=== PATIENT | male | born 1985 | race Asian ===

== ENCOUNTER 2017-11-21 14:47 | Emergency (ER) | payer OTHER ==
[2017-11-21 14:56] VITALS: BP 133/76; PULSE 93; TEMP 98.6; BMI 26.6
--- NOTE | 2017-11-21 15:39 | PDOC ---
History of Present Illness - General Chief Complaint: Ear Problem Stated Complaint: LT HEARING LOSS Time Seen by Provider: 11/21/17 15:17 History Source: Patient Exam Limitations: No Limitations - History of Present Illness Initial Comments: 11/21/17 15:34 This is 32-year-old male without significant past medical history presents to the emergency department with decreased hearing in his left ear starting on Wednesday afternoon. Patient states came on from work and noticed sudden onset hearing loss in his left ear. He denies any trauma he denies trying to clean his ears denies any discharge or drainage. Patient states the hearing has remained decreased over that time but woke up yesterday morning with dizziness that smoke approximately one hour to resolve. Patient did not seek out care because the dizziness did resolve spontaneously. He denies any fevers, cough, chills, ear pain, headaches, neck pain, chest pain, shortness of breath. Patient denies loud noise exposure. PMD: None PMH: Denies PSH: Denies NKDA Occupation: works at [employer] Past History - Past Medical History Allergies/Adverse Reactions: Allergies Allergy/AdvReac Type Severity Reaction Status Date / Time No Known Allergies Allergy Verified 11/21/17 14:56 Home Medications: Ambulatory Orders Meclizine HCl [Antivert -] 25 mg PO TID PRN #21 tablet 11/21/17 COPD: No - Suicide/Smoking/Psychosocial Hx Smoking History: Current some day smoker Number of Cigarettes Smoked Daily: 2 Information on smoking cessation initiated: No Hx Alcohol Use: Yes (SOCIAL) Drug/Substance Use Hx: No *Physical Exam - Vital Signs Last Vital Signs Temp Pulse Resp BP Pulse Ox 98.6 F 93 H 20 133/76 95 11/21/17 14:50 11/21/17 14:50 11/21/17 14:50 11/21/17 14:50 11/21/17 14:50 Medical Decision Making - Medical Decision Making 11/21/17 15:36 A/P: This is 32-year-old male without significant past medical history presents to the emergency department with decreased hearing in his left ear starting on Wednesday afternoon. Patient states came on from work and noticed sudden onset hearing loss in his left ear. He denies any trauma he denies trying to clean his ears denies any discharge or drainage. Patient states the hearing has remained decreased over that time but woke up yesterday morning with dizziness that smoke approximately one hour to resolve. Patient did not seek out care because the dizziness did resolve spontaneously. He denies any fevers, cough, chills, ear pain, headaches, neck pain, chest pain, shortness of breath. Examination the ears reveals mild erythema noted around the TM. TMs pearly smith with mild retractions bilaterally. Appropriate light reflex noted. Oropharynx is clear without exudates. Lungs clear to auscultation bilaterally. RRR. S1 and S2 present. No murmur, rub or gallop noted. Abdomen soft nontender nondistended. Examination of cranial nerves reveals left-sided deviation to the tip of the tongue. Patient will be transferred to main emergency department for further evaluation of neurologic findings. Signout given to KAI Brower. *DC/Admit/Observation/Transfer Diagnosis at time of Disposition: Hearing loss in left ear Qualifiers: Hearing loss type: unspecified Qualified Code(s): H91.92 - Unspecified hearing loss, left ear - Discharge Dispostion Disposition: HOME Condition at time of disposition: Good - Prescriptions Prescriptions: Meclizine HCl [Antivert -] 25 mg PO TID PRN #21 tablet PRN Reason: dizzyness - Referrals Referrals: Seven Stahl MD [Staff Physician] - Emery Mccall MD [Staff Physician] - - Patient Instructions Additional Instructions: your head cat scan done today is normal, however this does not exclude other etiologies for your hearing loss so you must follow up to have continued care take the meclizine as directed for dizzyness drink pleanty of water avoid any loud noises, avoid using anything in your ear please follow with the ENT doctors next week call to make appointment on wednesday say you were in the Emergency Room please call for primary care follow up appointment - Post Discharge Activity
--- NOTE | 2017-11-21 16:11 | PDOC ---
*Physical Exam - Vital Signs Last Vital Signs Temp Pulse Resp BP Pulse Ox 98.6 F 93 H 20 133/76 95 11/21/17 14:50 11/21/17 14:50 11/21/17 14:50 11/21/17 14:50 11/21/17 14:50 - Physical Exam Comments: 11/21/17 16:06 left ear decreased hearing General Appearance: Yes: Nourished, Appropriately Dressed HEENT: positive: EOMI, BERTHA, Normal ENT Inspection, TMs Normal, Pharynx Normal Neck: positive: Supple. negative: Lymphadenopathy (R), Lymphadenopathy (L) Respiratory/Chest: positive: Lungs Clear, Normal Breath Sounds Cardiovascular: positive: Regular Rhythm, Regular Rate Lymphatic: negative: Adenopathy Musculoskeletal: positive: Normal Inspection Extremity: positive: Normal Capillary Refill, Normal Inspection, Normal Range of Motion Integumentary: positive: Normal Color, Dry, Warm Neurologic: positive: Fully Oriented, Alert, Normal Mood/Affect, Normal Response , Motor Strength 5/5, Finger to Nose (intact, steady gait neg rhomberg ), Other (POS DECREASED HEARING LEFT SIDE) ED Treatment Course - RADIOLOGY Radiology Studies Ordered: Category Date Time Status HEAD CT WITHOUT CONTRAST [CT] Stat CT Scan 11/21/17 16:00 Ordered Medical Decision Making - Medical Decision Making 11/21/17 16:07 cc: wednesday afternoon had "ringing in left ear" and then decreased hearing, sat AM had episode of dizzyness upon awakening that resolved on own denies nausea or vomiting denies any trauma, no exposure to loud noises, no travel on airplane. pt admits to wearing ear buds 3-4 times a week no surgeriey no pmhx denies any drug use, illicit or other, neg antibiotic use recently pt has no pain is comfortable at this time will get head ct r/o pathology will refer to ENT and give a PMD meclizine prn dizzyness *DC/Admit/Observation/Transfer Diagnosis at time of Disposition: Hearing loss in left ear Qualifiers: Hearing loss type: unspecified Qualified Code(s): H91.92 - Unspecified hearing loss, left ear - Discharge Dispostion Disposition: HOME Condition at time of disposition: Good - Prescriptions Prescriptions: Meclizine HCl [Antivert -] 25 mg PO TID PRN #21 tablet PRN Reason: dizzyness - Referrals Referrals: Favio,Seven, MD [Staff Physician] - Emery Mccall MD [Staff Physician] - - Patient Instructions Additional Instructions: your head cat scan done today is normal, however this does not exclude other etiologies for your hearing loss so you must follow up to have continued care take the meclizine as directed for dizzyness drink pleanty of water avoid any loud noises, avoid using anything in your ear please follow with the ENT doctors next week call to make appointment on wednesday say you were in the Emergency Room please call for primary care follow up appointment - Post Discharge Activity
== END 2017-11-21 17:43 | disposition home or self-care (01) ==
LOC: JER 14:47
DX: H91.92 Unspecified hearing loss, left ear (principal)
CPT/HCPCS: 70450-TC; 99284-25

== ENCOUNTER 2020-06-29 22:21 | Inpatient (IN) | payer OTHER ==
[2020-06-29 22:38] VITALS: BMI 25.0
--- NOTE | 2020-06-29 22:55 | PDOC ---
History of Present Illness - General Chief Complaint: Pain Stated Complaint: ABD PAIN - History of Present Illness Initial Comments: 34 yo male with PMH of gastritis presents with abdominal pain, nausea, vomiting, diarrhea. Pt says the symptoms have been ongoing for the past 1 month. The nausea is non-bloody and non-bilious and occurs 1-2x/day typically after meals. The diarrhea is non-bloody and occurs 2-3 times per day. He also endorses excessive urination without dysuria. He follows with Dr. Lozoya who had performed a RUQ US which revealed a hepatic cyst and will do a EGD next week to evaluate for gastritis. Pt denies fevers, chills, cp, sob. Past History - Medical History Allergies/Adverse Reactions: Allergies Allergy/AdvReac Type Severity Reaction Status Date / Time No Known Allergies Allergy Verified 11/21/17 14:56 Home Medications: Ambulatory Orders Meclizine HCl [Antivert -] 25 mg PO TID PRN #21 tablet 11/21/17 COPD: No - Psycho-Social/Smoking History Smoking History: Never smoked Number of Cigarettes Smoked Daily: 2 - Substance Abuse Hx (Audit-C & DAST Scrn) How often the patient has a drink containing alcohol: Never Score: In Men: 4 or > Positive; In Women: 3 or > Positive: 0 Screen Result (Pos requires Nsg. Audit-10AR): Negative Review of Systems - Review of Systems Constitutional: No: Chills, Fever HEENTM: No: Recent change in vision, Double Vision Respiratory: No: Cough, Shortness of Breath Cardiac (ROS): No: Chest Pain, Chest Tightness ABD/GI: Yes: Abdominal Distended, Diarrhea, Nausea, Vomiting, Abdominal cramping (right sided) : Yes: Frequency. No: Burning, Dysuria Musculoskeletal: No: Back Pain, Joint Pain, Muscle Pain Integumentary: No: Erythema, Lesions, Rash Neurological: No: Headache, Seizure, Ataxia, Dizziness Psychiatric: No: Anxiety, Depression, Mood Swings Endocrine: No: Intolerance to Cold, Intolerance to Heat, Increased Urine *Physical Exam - Vital Signs Last Vital Signs Temp Pulse Resp BP Pulse Ox 98.4 F 92 H 20 138/80 98 06/29/20 22:32 06/29/20 22:32 06/29/20 22:32 06/29/20 22:32 06/29/20 22:32 - Physical Exam General Appearance: Yes: Appropriately Dressed. No: Apparent Distress HEENT: positive: EOMI, Normal Voice Neck: negative: Tender, Rigid Respiratory/Chest: positive: Lungs Clear, Normal Breath Sounds. negative: Respiratory Distress Cardiovascular: positive: Regular Rhythm, Regular Rate, S1, S2 Gastrointestinal/Abdominal: positive: Normal Bowel Sounds, Tender (right sided), Flat, Guarding. negative: Pulsatile Mass Musculoskeletal: positive: Normal Inspection. negative: CVA Tenderness Extremity: positive: Normal Capillary Refill, Normal Inspection, Normal Range of Motion Integumentary: positive: Normal Color, Dry, Warm Neurologic: positive: Fully Oriented, Alert, Normal Mood/Affect Medical Decision Making - Medical Decision Making 34 yo male with PMH of gastritis presenting with 1 month of abdominal pain, nausea, vomiting, diarrhea for 1 month. Pt last took zofran and mylanta at 2100 Pt given 1L fluids, Tylenol, Famotidine, Reglan, Maalox Pt follows with Dr. Lozoya for GI with a scheduled RUQ US Pt signed out to night team. 06/30/20 00:13 Discharge - Discharge Information Problems reviewed: Yes Clinical Impression/Diagnosis: Nausea vomiting and diarrhea, Abdominal pain - Follow up/Referral - Patient Discharge Instructions - Post Discharge Activity
[2020-06-29] MEDS ORDERED: ACETAMINOPHEN 325 MG TABLET (FP) PO ONE (23:32)
[2020-06-29] MEDS ORDERED: METOCLOPRAMIDE HCL INJECTION 10 MG/2 ML VIAL IVPUSH ONE (23:33)
[2020-06-29] MEDS ORDERED: FAMOTIDINE 20 MG/50 ML IVPB 20 MG/50 ML MG IVPB ONE (23:34)
[2020-06-29] MEDS ORDERED: SODIUM CHLORIDE 1,000 ML IV STA (23:51)
--- NOTE | 2020-06-29 23:52 | PDOC ---
Documentation entered by Latoya San SCRIBE, acting as scribe for Arnav Doyle MD. Arnav Doyle MD: This documentation has been prepared by the ashleyibeMena Sydney, SCRIBE, under my direction and personally reviewed by me in its entirety. I confirm that the documentation accurately reflects all work, treatment, procedures, and medical decision making performed by me. Attending Attestation - Resident Resident Name: Nikki York - ED Attending Attestation I have performed the following: I have examined & evaluated the patient, The case was reviewed & discussed with the resident, I agree w/resident's findings & plan, Exceptions are as noted - HPI HPI: 06/29/20 23:30 Patient is a 34 year old male with a significant past medical history of gastritis who presents to the ED with one month of abdominal pain, nausea, and vomiting. As per patient, he endorses sharp, non-radiating abdominal pain localized in the R flank, between 1-2 episodes of NBNB vomiting and 2-3 episodes of loose stool per day. Patient also notes polyuria but denies dysuria. Patient states that he is seen his primary care doctor as well as GI doctor was referred for a gallbladder ultrasound. The symptoms do seem to be brought on by heavy greasy spicy foods. He was tested for COVID in March and was negative Denies fever, chills, hematemesis, melena, BPR headache, shortness of breath, chest pain, constipation, or urinary changes. No recent travel or known sick contacts Allergies: NKDA GI Dr. Lozoya - Physicial Exam PE: 06/29/20 23:48 GENERAL: The patient is awake, alert, and fully oriented, Nontoxic - in no acute distress. HEAD: Normocephalic, atraumatic. EYES: extraocular movements intact, sclera anicteric, conjunctiva clear. ENT: Normal voice, Moist mucous membranes. NECK: Normal range of motion, supple LUNGS: Breath sounds equal, clear to auscultation bilaterally. No wheezes, no rhonchi, no rales. HEART: Regular rate and rhythm, normal S1 and S2 without murmur, rub or gallop. ABDOMEN: Soft, mild tednerss at R obliique, No guarding, no rebound. No CVA tenderness, negative Echevarria's, no tenderness at McBurney's point EXTREMITIES: Normal range of motion, no edema. NEUROLOGICAL: No facial assymetry, Normal speech, moving all 4 extremities pontnously and symmetrically PSYCH: Normal mood, normal affect. SKIN: Warm, Dry, normal turgor, - Medical Decision Making 06/29/20 23:51 Differential for the patient's pain includes possible MSK, kidney stone, consider possible gallbladder etiology however he has no right upper quadrant tenderness, nor any right lower quadrant tenderness. Obtain blood work, will give Pepcid, Maalox, will obtain UA will reassess 07/09/20 23:59 Case signed out to evening team to reassess and disposition the patient Discharge - Discharge Information Problems reviewed: Yes Clinical Impression/Diagnosis: Nausea vomiting and diarrhea, Right kidney stone, Hydronephrosis of right kidney Abdominal pain Qualifiers: Abdominal location: generalized Qualified Code(s): R10.84 - Generalized abdominal pain Condition: Stable - Follow up/Referral - Patient Discharge Instructions - Post Discharge Activity
[2020-06-30] MEDS ORDERED: METOCLOPRAMIDE HCL INJECTION 10 MG/2 ML VIAL ONE (00:08)
[2020-06-30] MEDS ORDERED: FAMOTIDINE 20 MG/50 ML IVPB 20 MG/50 ML MG IVPB ONE (00:08)
[2020-06-30] MEDS ORDERED: ACETAMINOPHEN 325 MG TABLET (FP) ONE (00:08)
--- NOTE | 2020-06-30 00:31 | PDOC ---
*Physical Exam - Vital Signs Last Vital Signs Temp Pulse Resp BP Pulse Ox 98.4 F 92 H 20 138/80 98 06/29/20 22:32 06/29/20 22:32 06/29/20 22:32 06/29/20 22:32 06/29/20 22:32 ED Treatment Course - LABORATORY CBC & Chemistry Diagram: 06/30/20 00:25 06/30/20 00:25 - Medications Given in the ED: ED Medications Discontinued Medications Generic Name Dose Route Start Last Admin Trade Name [place] PRN Reason Stop Dose Admin Acetaminophen 650 mg 06/29/20 23:32 06/30/20 00:24 Tylenol - PO 06/29/20 23:33 650 mg ONCE ONE Administration Famotidine/Sodium Chloride 20 mg in 50 mls @ 100 mls/hr 06/29/20 23:34 06/30/20 00:24 Pepcid 20 Mg Premixed Ivpb - IVPB 06/30/20 00:03 100 mls/hr ONCE ONE Administration Metoclopramide HCl 10 mg 06/29/20 23:33 06/30/20 00:24 Reglan Injection - IVPUSH 06/29/20 23:34 10 mg ONCE ONE Administration Medical Decision Making - Medical Decision Making 06/30/20 00:30 Sign out received []labs, urine 06/30/20 02:08 Pain improved. Pain intermittent x1mo, R flank. No hx kidney stones. EGD next week. Never CT scan done. Denies hematuria, endorses some pain with urination. Labs/urine reviewed - MICHELLE and hematuria, c/w kidney stone -Spiral CTAP -2nd L NS 06/30/20 04:11 [id number] stone in R posterior bladder wall at R ureterovesicular junction with m oderate right hydronephrosis -Tamsulosin -IVF -Admit due to 1mo pain, moderate hydro, size stone, risk of not passing on own 06/30/20 05:53 Signed out to admitting team Discharge - Discharge Information Problems reviewed: Yes Clinical Impression/Diagnosis: Nausea vomiting and diarrhea, Abdominal pain, Right kidney stone, Hydronephrosis of right kidney Condition: Stable - Admission Yes - Follow up/Referral - Patient Discharge Instructions - Post Discharge Activity
[2020-06-30 01:00] LABS: HEMATOCRIT 43.1 % (35.4-49); HEMOGLOBIN 14.6 GM/dL (11.7-16.9); MCH 31.1 pg (25.7-33.7); MEAN CELL VOLUME 91.4 fl (80-96); MEAN PLT VOLUME 9.7 fl (7.5-11.1); PLATELET COUNT 211 K/MM3 (134-434); RBC 4.72 M/mm3 (4.00-5.60); RDW 12.8 % (11.9-15.9); WHITE BLOOD COUNT 10.1 K/mm3 (4.0-10.0)
[2020-06-30 01:13] LABS: EPI CELLS 3 /uL (0-25.1); HYALINE CASTS 1 /uL (0-3.1); URINE APPEARANCE CLEAR; URINE BACTERIA 168 /uL (0-1359); URINE BILIRUBIN NEGATIVE (NEGATIVE); URINE COLOR YELLOW; URINE GLUCOSE (UA) NEGATIVE (NEGATIVE); URINE KETONE 2+ (NEGATIVE); URINE LEUK ESTERASE NEGATIVE (NEGATIVE); URINE NITRITE NEGATIVE (NEGATIVE); URINE PROTEIN NEGATIVE (NEGATIVE); URINE RBC 168 /uL (0-23.9); URINE UROBILINOGEN 0.2 mg/dL (0.2-1.0); URINE WBC 18 /uL (0-25.8)
[2020-06-30 01:22] LABS: BILIRUBIN,TOTAL 0.8 mg/dL (0.2-1); BLOOD UREA NITROGEN 17.9 mg/dL (7-18); CALCIUM 9.3 mg/dL (8.5-10.1); CREATININE 1.5 mg/dL (0.55-1.3); POTASSIUM 4.5 mmol/L (3.5-5.1); TOT PROT 7.3 g/dl (6.4-8.2)
[2020-06-30] MEDS ORDERED: KETOROLAC TROMETHAMINE 30 MG/1 ML VIAL IVPUSH ONE (01:59)
[2020-06-30] MEDS ORDERED: KETOROLAC TROMETHAMINE 30 MG/1 ML VIAL ONE (02:13)
[2020-06-30] MEDS ORDERED: SODIUM CHLORIDE 0.9% 500 ML INFUS.BAG IV ONE (02:15)
[2020-06-30] MEDS ORDERED: TAMSULOSIN HCL 0.4 MG CAP PO ONE (04:11)
[2020-06-30] MEDS ORDERED: SODIUM CHLORIDE 1,000 ML IV SCH (04:15)
[2020-06-30] MEDS ORDERED: TAMSULOSIN HCL 0.4 MG CAP ONE (05:08)
[2020-06-30] MEDS ORDERED: CEFTRIAXONE 1 GM in DEXTROSE 5%-WATER - 50 ML IVPB ONE (05:43)
--- NOTE | 2020-06-30 05:43 | PDOC ---
*Physical Exam - Vital Signs Last Vital Signs Temp Pulse Resp BP Pulse Ox 97.8 F 71 18 111/75 99 06/30/20 02:55 06/30/20 02:55 06/30/20 02:55 06/30/20 02:55 06/30/20 02:55 ED Treatment Course - LABORATORY CBC & Chemistry Diagram: 06/30/20 00:25 06/30/20 00:25 - ADDITIONAL ORDERS Additional order review: Laboratory Results 06/30/20 06/30/20 06/30/20 00:25 00:25 00:25 Sodium 138 Potassium 4.5 Chloride 104 Carbon Dioxide 29 Anion Gap 5 L BUN 17.9 Creatinine 1.5 H Est GFR (CKD-EPI)AfAm 68.43 Est GFR (CKD-EPI)NonAf 59.04 Random Glucose 111 H Calcium 9.3 Total Bilirubin 0.8 AST 25 ALT 24 Alkaline Phosphatase 59 Total Protein 7.3 Albumin 4.0 Lipase 147 Urine Color Yellow Urine Appearance Clear Urine pH 6.0 Ur Specific [place] 1.017 Urine Protein Negative Urine Glucose (UA) Negative Urine Ketones 2+ H Urine Blood 3+ H Urine Nitrite Negative Urine Bilirubin Negative Urine Urobilinogen 0.2 Ur Leukocyte Esterase Negative Urine WBC (Auto) 18 Urine RBC (Auto) 168 Urine Casts (Auto) 1 U Epithel Cells (Auto) 3 Urine Bacteria (Auto) 168 06/30/20 00:25 RBC 4.72 MCV 91.4 MCHC 34.0 RDW 12.8 MPV 9.7 - Medications Given in the ED: ED Medications Discontinued Medications Generic Name Dose Route Start Last Admin Trade Name Freq PRN Reason Stop Dose Admin Acetaminophen 650 mg 06/29/20 23:32 06/30/20 00:24 Tylenol - PO 06/29/20 23:33 650 mg ONCE ONE Administration Famotidine/Sodium Chloride 20 mg in 50 mls @ 100 mls/hr 06/29/20 23:34 06/30/20 00:24 Pepcid 20 Mg Premixed Ivpb - IVPB 06/30/20 00:03 100 mls/hr ONCE ONE Administration Sodium Chloride 1,000 mls @ 1,000 mls/hr 06/29/20 23:51 06/30/20 00:24 Normal Saline - IV 06/30/20 00:50 1,000 mls/hr ASDIR STA Administration Ketorolac Tromethamine 30 mg 06/30/20 01:59 06/30/20 02:29 Toradol Injection - IVPUSH 06/30/20 02:00 30 mg ONCE ONE Administration Metoclopramide HCl 10 mg 06/29/20 23:33 06/30/20 00:24 Reglan Injection - IVPUSH 06/29/20 23:34 10 mg ONCE ONE Administration Sodium Chloride 1,000 ml 06/30/20 02:15 06/30/20 02:43 Normal Saline - IV 06/30/20 02:16 1,000 ml ONCE ONE Administration Tamsulosin HCl 0.4 mg 06/30/20 04:11 06/30/20 05:13 Flomax - PO 06/30/20 04:12 0.4 mg ONCE ONE Administration Medical Decision Making - Medical Decision Making 06/30/20 05:42 Pt signed out to us by the night team. Patient Name: LISA DODSON THIS IS A PRELIMINARY REPORT DATE OF SERVICE: 2020-06-30 01:58:53 IMAGES: [id number] EXAM: CT abdomen without contrast and CT pelvis without contrast HISTORY: 34-year-old male right flank pain COMPARISON: None. FINDINGS: No basilar infiltrate. Lack of intravenous contrast limits this exam. Noncontrast evaluation liver gallbladder pancreas spleen and adrenal glands left kidney appear unremarkable. Moderate right hydronephrosis with an 8 x 4 x 4 mm stone in the right posterior bladder wall at the right ureterovesicular junction. Small hiatal hernia. Lack of oral contrast limits this exam. Nonoral contrast evaluation of the stomach and small bowel appear unremarkable. Appendix is not identified. Diverticulosis. No free air. No free fluid. No abscess. Mild nonspecific bladder wall thickening may be due to infectious cystitis. Calcified granulomas in the prostate. Mild degenerative disc disease. IMPRESSION: Moderate right hydronephrosis with an 8 x 4 x 4 mm stone in the right posterior bladder wall at the right ureterovesicular junction. Small hiatal hernia. Diverticulosis. Mild nonspecific bladder wall thickening may be due to infectious cystitis. Pt will be admitted to the hospitalists for an obstructed stone Discharge - Discharge Information Problems reviewed: Yes Clinical Impression/Diagnosis: Nausea vomiting and diarrhea, Abdominal pain, Right kidney stone, Hydronephrosis of right kidney Condition: Stable - Follow up/Referral - Patient Discharge Instructions - Post Discharge Activity
[2020-06-30] MEDS ORDERED: CEFTRIAXONE 1 GM/50 ML BAG ONE (06:06)
[2020-06-30] MEDS ORDERED: ACETAMINOPHEN 325 MG TABLET (FP) PO PRN (08:41)
[2020-06-30] MEDS ORDERED: MORPHINE SULFATE 2 MG/ML VIAL IVPUSH PRN (08:44)
--- NOTE | 2020-06-30 08:51 | EKG ---
Test Reason : Blood Pressure : / mmHG Vent. Rate : 065 BPM Atrial Rate : 065 BPM P-R Int : 142 ms QRS Dur : 078 ms QT Int : 390 ms P-R-T Axes : 041 021 020 degrees QTc Int : 405 ms NORMAL SINUS RHYTHM INCREASED R/S RATIO IN V1, CONSIDER EARLY TRANSITION OR POSTERIOR INFARCT ABNORMAL ECG NO PREVIOUS ECGS AVAILABLE Confirmed by Carmella Kim ([id number]) on 06/30/2020 8:51:07 AM Referred By: Confirmed By:Carmella Kim
[2020-06-30] MEDS: SODIUM CHLORIDE 1,000 ML IV SCH (09:27)
--- NOTE | 2020-06-30 10:25 | HP ---
CHIEF COMPLAINT: Flank pain PCP: None HISTORY OF PRESENT ILLNESS: 34yo M with h/o gastritis who presents originally to the ER with abdominal and flank pain. Patient has had roughly 1 mo of abdominal/flank pain with nausea and Nb/NB vomiting. He sough further evaluation due to sudden onset of sharp non-radiating pain in his R flank. Patient has had about 2 episodes of loose stool without any blood or mucus. Pt endorses polyuria, but denies any hematuria or dysuria. Patient denies any vitamin use. Pt denies any fever/chills, n/v/d/c, SOB, CP, palpitations, sick contacts, weakness, or numbness. Denies any sick contacts or travel. Denies any previous stones in the past. PAST MEDICAL HISTORY: As above PAST SURGICAL HISTORY: None Social History: Smoking: Denies Alcohol: Denies Drugs: Denies FamHx: No history of nephrolithiasis Allergies No Known Allergies Allergy (Verified 11/21/17 14:56) HOME MEDICATIONS: Home Medications Medication Instructions Recorded Lactobacillus Acidophilus 1 each PO DAILY 06/30/20 [Probiotic] Omeprazole Magnesium [Prilosec Otc] 20 mg PO DAILY 06/30/20 REVIEW OF SYSTEMS As per HPI PHYSICAL EXAMINATION Vital Signs - 24 hr 06/29/20 06/30/20 06/30/20 22:32 02:55 06:24 Temperature 98.4 F 97.8 F 97.8 F Pulse Rate 92 H Pulse Rate [ 71 60 Left Radial] Respiratory 20 18 18 Rate Blood Pressure 138/80 Blood Pressure 111/75 113/83 [Right Arm] O2 Sat by Pulse 98 99 97 Oximetry (%) 06/30/20 08:04 Temperature 97.5 F L Pulse Rate 64 Pulse Rate [ Left Radial] Respiratory 18 Rate Blood Pressure 118/54 L Blood Pressure [Right Arm] O2 Sat by Pulse Oximetry (%) GENERAL: Awake, alert, and fully oriented, in no acute distress. HEENT: NC/AT, HAM, EOMI without nystagmus, MMM NECK: No JVD, no lymphadenopathy LUNGS: CTA bilaterally. No wheezes, and no crackles. No accessory muscle use. HEART: RRR, normal S1 and S2 without murmur ABDOMEN: Soft, NT/ND, normoactive bowel sounds, no guarding, no rebound, no masses. No hepatomegaly MUSCULOSKELETAL: Mild CVA tenderness L EXTREMITIES: 2+ DP pulses, warm, well-perfused. No calf tenderness. No peripheral edema. PSYCHIATRIC: Cooperative. Good eye contact. Appropriate mood and affect. SKIN: Warm, dry, no rashes or lesions noted Laboratory Results - last 24 hr 06/30/20 06/30/20 06/30/20 00:25 00:25 00:25 WBC 10.1 H RBC 4.72 Hgb 14.6 Hct 43.1 MCV 91.4 MCH 31.1 MCHC 34.0 RDW 12.8 Plt Count 211 MPV 9.7 Sodium 138 Potassium 4.5 Chloride 104 Carbon Dioxide 29 Anion Gap 5 L BUN 17.9 Creatinine 1.5 H Est GFR (CKD-EPI)AfAm 68.43 Est GFR (CKD-EPI)NonAf 59.04 Random Glucose 111 H Calcium 9.3 Total Bilirubin 0.8 AST 25 ALT 24 Alkaline Phosphatase 59 Total Protein 7.3 Albumin 4.0 Lipase Urine Color Yellow Urine Appearance Clear Urine pH 6.0 Ur Specific [place] 1.017 Urine Protein Negative Urine Glucose (UA) Negative Urine Ketones 2+ H Urine Blood 3+ H Urine Nitrite Negative Urine Bilirubin Negative Urine Urobilinogen 0.2 Ur Leukocyte Esterase Negative Urine WBC (Auto) 18 Urine RBC (Auto) 168 Urine Casts (Auto) 1 U Epithel Cells (Auto) 3 Urine Bacteria (Auto) 168 06/30/20 00:25 WBC RBC Hgb Hct MCV MCH MCHC RDW Plt Count MPV Sodium Potassium Chloride Carbon Dioxide Anion Gap BUN Creatinine Est GFR (CKD-EPI)AfAm Est GFR (CKD-EPI)NonAf Random Glucose Calcium Total Bilirubin AST ALT Alkaline Phosphatase Total Protein Albumin Lipase 147 Urine Color Urine Appearance Urine pH Ur Specific [place] Urine Protein Urine Glucose (UA) Urine Ketones Urine Blood Urine Nitrite Urine Bilirubin Urine Urobilinogen Ur Leukocyte Esterase Urine WBC (Auto) Urine RBC (Auto) Urine Casts (Auto) U Epithel Cells (Auto) Urine Bacteria (Auto) ASSESSMENT/PLAN: Obstructing Nephrolithiasis Complicated Cystitis Acute kidney Injury History of Gastritis History of Hepatic Cyst --8x4x4 cm stone noted in junction --Hydrate with IVF to promote renal output --Flomax 0.4mg daily --Pain control: Tylenol and morphine for extreme pain (would avoid NSAIDs in patient with history of gastritis) --Rocephin daily ordered for empiric coverage --Strain urine for stone passage --If patient's renal function worsens or stone does not pass would consult urology for extraction --Urine culture pending --F/u hepatic cyst and gastritis treatment on outpatient basis FEN: Fluids: NS@100cc/hr Electrolyte abnormalities: None currently Nutrition: Regular diet PPX: DVT - Early ambulation for now Dispo: Adm M/S Emery Mary, DO - IM Visit type - Emergency Visit Emergency Visit: Yes ED Registration Date: 06/30/20 Care time: The patient presented to the Emergency Department on the above date and was hospitalized for further evaluation of their emergent condition. - New Patient This patient is new to me today: Yes Date on this admission: 06/30/20 - Critical Care Critical Care patient: No
[2020-07-01 08:01] LABS: HEMATOCRIT 42.1 % (35.4-49); HEMOGLOBIN 14.3 GM/dL (11.7-16.9); MCH 30.8 pg (25.7-33.7); MEAN CELL VOLUME 90.6 fl (80-96); MEAN PLT VOLUME 9.7 fl (7.5-11.1); PLATELET COUNT 203 K/MM3 (134-434); RBC 4.65 M/mm3 (4.00-5.60); RDW 12.6 % (11.9-15.9); WHITE BLOOD COUNT 5.2 K/mm3 (4.0-10.0)
[2020-07-01 08:20] LABS: BLOOD UREA NITROGEN 14.4 mg/dL (7-18); CALCIUM 9.3 mg/dL (8.5-10.1); POTASSIUM 4.2 mmol/L (3.5-5.1)
[2020-07-01] MEDS: TAMSULOSIN HCL 0.4 MG CAP PO SCH (08:30)
[2020-07-01] MEDS ORDERED: cefTRIAXone SODIUM 1 GM VIAL ONE (09:36)
[2020-07-01] MEDS ORDERED: DEXTROSE 5%-WATER - 50 ML IVPB ONE (09:36)
[2020-07-01] MEDS: PANTOPRAZOLE 20 MG TABLET PO SCH (09:42)
[2020-07-01] MEDS ORDERED: CEFTRIAXONE 1 GM in DEXTROSE 5%-WATER - 50 ML IVPB SCH (10:00)
[2020-07-01] MEDS: SODIUM CHLORIDE 1,000 ML IV SCH ×2 (12:30→12:31)
--- NOTE | 2020-07-01 14:36 | PN ---
Teaching Attending Note Name of Resident: William Cade ATTENDING PHYSICIAN STATEMENT I saw and evaluated the patient. I reviewed the resident's note and discussed the case with the resident. I agree with the resident's findings and plan as documented. SUBJECTIVE: pt seen and examined at bedside OBJECTIVE: Last Vital Signs Temp Pulse Resp BP Pulse Ox 98.2 F 71 20 118/79 98 07/01/20 08:25 07/01/20 08:25 07/01/20 08:25 07/01/20 08:25 07/01/20 08:25 GENERAL: Awake, alert, and fully oriented, in no acute distress. HEAD: Normal with no signs of trauma. EYES: Pupils equal, round and reactive to light, sclera anicteric, conjunctiva clear. LUNGS: Breath sounds equal, clear to auscultation bilaterally. No wheezes, and no crackles. No accessory muscle use. HEART: Regular rate and rhythm, normal S1 and S2 ABDOMEN: Soft, nontender, not distended MUSCULOSKELETAL: Normal range of motion at all joints. No bony deformities or tenderness. No CVA tenderness. UPPER EXTREMITIES: 2+ pulses, warm, well-perfused. No cyanosis. No clubbing. No peripheral edema. LOWER EXTREMITIES: 2+ pulses, warm, well-perfused. No calf tenderness. No peripheral edema. NEUROLOGICAL: Cranial nerves II-XII intact. Normal speech. CBCD WBC 5.2 K/mm3 (4.0-10.0) 07/01/20 07:00 RBC 4.65 M/mm3 (4.00-5.60) 07/01/20 07:00 Hgb 14.3 GM/dL (11.7-16.9) 07/01/20 07:00 Hct 42.1 % (35.4-49) 07/01/20 07:00 MCV 90.6 fl (80-96) 07/01/20 07:00 MCHC 34.0 g/dl (32.0-35.9) 07/01/20 07:00 RDW 12.6 % (11.9-15.9) 07/01/20 07:00 Plt Count 203 K/MM3 (134-434) 07/01/20 07:00 MPV 9.7 fl (7.5-11.1) 07/01/20 07:00 CMP Sodium 139 mmol/L (136-145) 07/01/20 07:00 Potassium 4.2 mmol/L (3.5-5.1) 07/01/20 07:00 Chloride 107 mmol/L (98-107) 07/01/20 07:00 Carbon Dioxide 26 mmol/L (21-32) 07/01/20 07:00 Anion Gap 6 MMOL/L (8-16) L 07/01/20 07:00 BUN 14.4 mg/dL (7-18) 07/01/20 07:00 Creatinine 1.0 mg/dL (0.55-1.3) 07/01/20 07:00 Calcium 9.3 mg/dL (8.5-10.1) 07/01/20 07:00 Total Bilirubin 0.8 mg/dL (0.2-1) 06/30/20 00:25 AST 25 U/L (15-37) 06/30/20 00:25 ALT 24 U/L (13-61) 06/30/20 00:25 Alkaline Phosphatase 59 U/L (45-117) 06/30/20 00:25 Total Protein 7.3 g/dl (6.4-8.2) 06/30/20 00:25 Albumin 4.0 g/dl (3.4-5.0) 06/30/20 00:25 Active Medications Acetaminophen (Tylenol -) 650 mg PO Q6H PRN PRN Reason: PAIN LEVEL 4 - 6 Sodium Chloride (Normal Saline -) 1,000 mls @ 100 mls/hr IV ASDIR [facility] Last Admin: 07/01/20 12:31 Dose: Not Given Documented by: Morphine Sulfate (Morphine Sulfate) 2 mg IVPUSH Q6H PRN PRN Reason: PAIN LEVEL 7 - 10 Pantoprazole Sodium (Protonix -) 20 mg PO DAILY [facility] Last Admin: 07/01/20 09:42 Dose: 20 mg Documented by: Tamsulosin HCl (Flomax -) 0.4 mg PO DAILY@0830 [facility] Last Admin: 07/01/20 08:30 Dose: 0.4 mg Documented by: ASSESSMENT AND PLAN: 34 yo Man with h/o gastritis who admitted for nephrolithiasis #Obstructing Nephrolithiasis -7x2 mm stone noted with mild/moderate hydronephrosis -IVF, Flomax 0.4mg daily -Pain control: Tylenol and morphine for extreme pain (avoid NSAIDs) -urology consult DVT prophylaxis: SCD
--- NOTE | 2020-07-01 15:43 | CON.GU ---
Consult Consult Specialty:: Referred by:: Usman Reason for Consultation:: R ureteral calculus - History of Present Illness Chief Complaint: R flank pain History of Present Illness: 34yo M with h/o gastritis who presents originally to the ER with abdominal and flank pain. Patient has had roughly 1 mo of abdominal/flank pain with nausea and Nb/NB vomiting. He sough further evaluation due to sudden onset of sharp non- radiating pain in his R flank. Patient has had about 2 episodes of loose stool without any blood or mucus. Pt endorses polyuria, but denies any hematuria or dysuria. Patient denies any vitamin use. Pt denies any fever/chills, n/v/d/c, SOB, CP, palpitations, sick contacts, weakness, or numbness. Denies any sick contacts or travel. Denies any previous stones in the past. cons req. - Alcohol/Substance Use Hx Alcohol Use: Yes (SOCIAL) - Smoking History Smoking history: Former smoker Have you smoked in the past 12 months: Yes Aproximately how many cigarettes per day: 3 If you are a former smoker, when did you quit?: 1 month ago Home Medications - Allergies Allergies/Adverse Reactions: Allergies Allergy/AdvReac Type Severity Reaction Status Date / Time No Known Allergies Allergy Verified 11/21/17 14:56 - Home Medications Home Medications: Ambulatory Orders Lactobacillus Acidophilus [Probiotic] 1 each PO DAILY 06/30/20 Omeprazole Magnesium [Prilosec Otc] 20 mg PO DAILY 06/30/20 Review of Systems - Review of Systems Genitourinary: reports: Flank Pain Physical Exam- Vital Signs: Vital Signs Temperature 98.3 F 07/01/20 14:00 Pulse Rate 84 07/01/20 14:00 Respiratory Rate 18 07/01/20 14:00 Blood Pressure 125/69 07/01/20 14:00 O2 Sat by Pulse Oximetry (%) 98 07/01/20 14:00 Renal/: Yes: CVA Tenderness - Right Kidneys: Yes: WNL Pelvis: Yes: WNL Testicles: Yes: WNL Scrotum: Yes: WNL Penis: Yes: WNL Labs: CBC, BMP 07/01/20 07:00 07/01/20 07:00 Imaging - Results Cat Scan: Report Reviewed, Image Reviewed Problem List - Problems (1) Ureteral calculus, right Assessment/Plan: ivfs, tamsulosin, analgesia, strain urine, R ureteroscopic laser lithotripsy and JJ stent insertion 07/03 if stone fails to pass. Code(s): N20.1 - CALCULUS OF URETER (2) Hydronephrosis concurrent with and due to calculi of kidney and ureter Code(s): N13.2 - HYDRONEPHROSIS WITH RENAL AND URETERAL CALCULOUS OBSTRUCTION
--- NOTE | 2020-07-01 19:34 | PN ---
Physical Exam: SUBJECTIVE: Patient seen and examined at bedside. Patient reports improvement of symptoms without any complaints of further flank pain or trouble urinating. Patient denies any stone passage with usage of urine strainer. OBJECTIVE: Vital Signs Period Temp Pulse Resp BP Sys/Martínez Pulse Ox Last 24 Hr 98 F-98.3 F 66-84 18-20 104-125/66-79 97-99 GENERAL: The patient is awake, alert, and fully oriented, in no acute distress. LUNGS: Breath sounds equal, clear to auscultation bilaterally, no wheezes, no crackles, no accessory muscle use. HEART: Regular rate and rhythm, S1, S2 without murmur, rub or gallop. ABDOMEN: Soft, nontender, nondistended, normoactive bowel sounds, no guarding, no rebound, no hepatosplenomegaly, no masses. EXTREMITIES: 2+ pulses, warm, well-perfused, no edema. SKIN: Warm, dry, normal turgor, no rashes or lesions noted Laboratory Results - last 24 hr 06/30/20 07/01/20 07/01/20 11:50 07:00 07:00 WBC 5.2 RBC 4.65 Hgb 14.3 Hct 42.1 MCV 90.6 MCH 30.8 MCHC 34.0 RDW 12.6 Plt Count 203 MPV 9.7 Sodium 139 Potassium 4.2 Chloride 107 Carbon Dioxide 26 Anion Gap 6 L BUN 14.4 Creatinine 1.0 Est GFR (CKD-EPI)AfAm 111.73 Est GFR (CKD-EPI)NonAf 96.40 Random Glucose 95 Calcium 9.3 COVID-19 (BG) Not detected Active Medications Generic Name Dose Route Start Last Admin Trade Name Freq PRN Reason Stop Dose Admin Acetaminophen 650 mg 06/30/20 08:41 Tylenol - PO Q6H PRN PAIN LEVEL 4 - 6 Sodium Chloride 1,000 mls @ 100 mls/hr 06/30/20 08:45 07/01/20 12:31 Normal Saline - IV Not Given ASDIR MARK Morphine Sulfate 2 mg 06/30/20 08:44 Morphine Sulfate IVPUSH Q6H PRN PAIN LEVEL 7 - 10 Pantoprazole Sodium 20 mg 07/01/20 10:00 07/01/20 09:42 Protonix - PO 20 mg DAILY MARK Administration Tamsulosin HCl 0.4 mg 07/01/20 08:30 07/01/20 08:30 Flomax - PO 0.4 mg DAILY@0830 [facility] Administration ASSESSMENT/PLAN: Mr. Hutton is a 34M w no significant past medical history presenting to the hospital with flank pain and admitted for a positive finding of nephrolithiasis on CT scan. CTAP: 0.7 x 0.2 cm right uretovesicle junction calculus seen with resultant mild to moderate hydronephrosis. #Mild to moderate hydronephrosis secondary to right uretovesical junction calculus - followed by Dr. Everett Woody - Tamsulosin 0.4mg qd - IVF - urine strainer for evidence of stone passage - denies any stone present in urine - R ureteroscopic laser lithotripsy and jj stent insertion scheduled for 06/22 - Pain control: Tylenol and morphine - Avoid nephrotoxic agents such as NSAIDs DVT prophylaxis: SCD Visit type - Emergency Visit Emergency Visit: Yes ED Registration Date: 06/30/20 Care time: The patient presented to the Emergency Department on the above date and was hospitalized for further evaluation of their emergent condition. - New Patient This patient is new to me today: Yes Date on this admission: 07/02/20 - Critical Care Critical Care patient: No - Discharge Referral Referred to [facility] No ATTENDING PHYSICIAN STATEMENT I saw and evaluated the patient. I reviewed the resident's note and discussed the case with the resident. I agree with the resident's findings and plan as documented. SUBJECTIVE: OBJECTIVE: ASSESSMENT AND PLAN:
[2020-07-02 08:12] LABS: HEMATOCRIT 41.5 % (35.4-49); MCH 30.7 pg (25.7-33.7); MCHC 33.7 g/dl (32.0-35.9); MEAN CELL VOLUME 91.1 fl (80-96); MEAN PLT VOLUME 9.8 fl (7.5-11.1); PLATELET COUNT 213 K/MM3 (134-434); RBC 4.55 M/mm3 (4.00-5.60); WHITE BLOOD COUNT 4.2 K/mm3 (4.0-10.0)
[2020-07-02 08:29] LABS: BLOOD UREA NITROGEN 12.3 mg/dL (7-18); CALCIUM 8.9 mg/dL (8.5-10.1); MAGNESIUM 1.9 mg/dL (1.8-2.4); PHOSPHOROUS 3.2 mg/dL (2.5-4.9); POTASSIUM 4.2 mmol/L (3.5-5.1)
[2020-07-02] MEDS: SODIUM CHLORIDE 1,000 ML IV SCH ×2 (09:14→18:27)
[2020-07-02] MEDS: PANTOPRAZOLE 20 MG TABLET PO SCH (09:15)
[2020-07-02] MEDS: TAMSULOSIN HCL 0.4 MG CAP PO SCH (09:15)
--- NOTE | 2020-07-02 11:31 | PN ---
Physical Exam: SUBJECTIVE: Patient seen and examined at bedside. Patient denies any acute overnight events. Patient understands he will be undergoing surgical in tervention on 07/03 and will remain NPO. OBJECTIVE: Vital Signs Period Temp Pulse Resp BP Sys/Martínez Pulse Ox Last 24 Hr 97.9 F-98.4 F 73-89 18-20 118-141/68-78 98-99 GENERAL: The patient is awake, alert, and fully oriented, in no acute distress. LUNGS: Breath sounds equal, clear to auscultation bilaterally, no wheezes, no crackles, no accessory muscle use. HEART: Regular rate and rhythm, S1, S2 without murmur, rub or gallop. ABDOMEN: Soft, nontender, nondistended, normoactive bowel sounds, no guarding, no rebound, no hepatosplenomegaly, no masses. EXTREMITIES: 2+ pulses, warm, well-perfused, no edema. SKIN: Warm, dry, normal turgor, no rashes or lesions noted Laboratory Results - last 24 hr 07/02/20 07/02/20 07:08 07:08 WBC 4.2 RBC 4.55 Hgb 14.0 Hct 41.5 MCV 91.1 MCH 30.7 MCHC 33.7 RDW 13.0 Plt Count 213 MPV 9.8 Sodium 142 Potassium 4.2 Chloride 108 H Carbon Dioxide 29 Anion Gap 5 L BUN 12.3 Creatinine 1.0 Est GFR (CKD-EPI)AfAm 111.73 Est GFR (CKD-EPI)NonAf 96.40 Random Glucose 100 Calcium 8.9 Phosphorus 3.2 Magnesium 1.9 Active Medications Generic Name Dose Route Start Last Admin Trade Name Freq PRN Reason Stop Dose Admin Acetaminophen 650 mg 06/30/20 08:41 Tylenol - PO Q6H PRN PAIN LEVEL 4 - 6 Sodium Chloride 1,000 mls @ 100 mls/hr 06/30/20 08:45 07/02/20 09:14 Normal Saline - IV 100 mls/hr ASDIR MARK Administration Morphine Sulfate 2 mg 06/30/20 08:44 Morphine Sulfate IVPUSH Q6H PRN PAIN LEVEL 7 - 10 Pantoprazole Sodium 20 mg 07/01/20 10:00 07/02/20 09:15 Protonix - PO 20 mg DAILY MARK Administration Tamsulosin HCl 0.4 mg 07/01/20 08:30 07/02/20 09:15 Flomax - PO 0.4 mg DAILY@0830 [facility] Administration ASSESSMENT/PLAN: Mr. Hutton is a 34M w no significant past medical history presenting to the hospital with flank pain and admitted for a positive finding of nephrolithiasis on CT scan. CTAP: 0.7 x 0.2 cm right uretovesicle junction calculus seen with resultant mild to moderate hydronephrosis. #Mild to moderate hydronephrosis - secondary to right uretovesical junction calculus - followed by Dr. Everett Woody - patient will undergo R ureteroscopic laser lithotripsy and jj stent insertion scheduled for 07/03 - Tamsulosin 0.4mg qd, IVF - urine strainer for evidence of stone passage - denies any stone present in urine - Pain control: Tylenol 650 po Q6H PRN - Avoid nephrotoxic agents such as NSAIDs DVT prophylaxis: SCD Visit type - Emergency Visit Emergency Visit: Yes ED Registration Date: 06/30/20 Care time: The patient presented to the Emergency Department on the above date and was hospitalized for further evaluation of their emergent condition. - New Patient This patient is new to me today: No - Critical Care Critical Care patient: No - Discharge Referral Referred to [facility] No ATTENDING PHYSICIAN STATEMENT I saw and evaluated the patient. I reviewed the resident's note and discussed the case with the resident. I agree with the resident's findings and plan as documented. SUBJECTIVE: OBJECTIVE: ASSESSMENT AND PLAN:
[2020-07-02] MEDS: DOCUSATE SODIUM 100 MG CAPSULE (FP) PO SCH ×2 (13:30→21:27)
[2020-07-02] MEDS: POLYETHYLENE GLYCOL 3350 119 GM BTL PO SCH (13:30)
--- NOTE | 2020-07-02 14:05 | PN ---
Teaching Attending Note Name of Resident: Bertin Dawson ATTENDING PHYSICIAN STATEMENT I saw and evaluated the patient. I reviewed the resident's note and discussed the case with the resident. I agree with the resident's findings and plan as documented. SUBJECTIVE: pain is better controlled no new c/o OBJECTIVE: Last Vital Signs Temp Pulse Resp BP Pulse Ox 98.4 F 84 20 107/68 100 07/02/20 14:00 07/02/20 14:00 07/02/20 14:00 07/02/20 14:07/02/20 14:00 GENERAL: Awake, alert, and fully oriented, in no acute distress. HEAD: Normal with no signs of trauma. EYES: Pupils equal, round and reactive to light, extraocular movements intact, sclera anicteric, conjunctiva clear. No lid lag. EARS, NOSE, THROAT: Ears normal, nares patent, oropharynx clear without e xudates. Moist mucous membranes. NECK: Normal range of motion, supple without lymphadenopathy, JVD, or masses. LUNGS: Breath sounds equal, clear to auscultation bilaterally. No wheezes, and no crackles. No accessory muscle use. HEART: Regular rate and rhythm, normal S1 and S2 without murmur, rub or gallop. ABDOMEN: Soft, nontender, not distended, normoactive bowel sounds, no guarding, no rebound, no masses. No hepatomegaly or splenomegaly. MUSCULOSKELETAL: Normal range of motion at all joints. No bony deformities or tenderness. No CVA tenderness. UPPER EXTREMITIES: 2+ pulses, warm, well-perfused. No cyanosis. No clubbing. Cap refill <2 seconds. No peripheral edema. LOWER EXTREMITIES: 2+ pulses, warm, well-perfused. No calf tenderness. No peripheral edema. NEUROLOGICAL: Cranial nerves II-XII intact. Normal speech. Normal gait. PSYCHIATRIC: Cooperative. Good eye contact. Appropriate mood and affect. SKIN: Warm, dry, normal turgor, no rashes or lesions noted. Current Medications Generic Name Dose Route Start Last Admin Trade Name Freq PRN Reason Stop Dose Admin Acetaminophen 650 mg 06/30/20 08:41 Tylenol - PO Q6H PRN PAIN LEVEL 4 - 6 Docusate Sodium 100 mg 07/02/20 13:00 07/02/20 13:30 Colace - PO 100 mg BID MARK Administration Sodium Chloride 1,000 mls @ 100 mls/hr 06/30/20 08:45 07/02/20 09:14 Normal Saline - IV 100 mls/hr ASDIR MARK Administration Morphine Sulfate 2 mg 06/30/20 08:44 Morphine Sulfate IVPUSH Q6H PRN PAIN LEVEL 7 - 10 Pantoprazole Sodium 20 mg 07/01/20 10:00 07/02/20 09:15 Protonix - PO 20 mg DAILY MARK Administration Polyethylene Glycol 17 gm 07/02/20 13:00 07/02/20 13:30 Miralax (For Daily Use) - PO 17 grams DAILY MARK Administration Tamsulosin HCl 0.4 mg 07/01/20 08:30 07/02/20 09:15 Flomax - PO 0.4 mg DAILY@0830 MARK Administration CBC, BMP 07/02/20 07:08 07/02/20 07:08 ASSESSMENT AND PLAN: 34 yo Man with h/o gastritis who admitted for nephrolithiasis #Obstructing Nephrolithiasis -7x2 mm stone noted with mild/moderate hydronephrosis -IVF, Flomax 0.4mg daily -Pain control: Tylenol and morphine for extreme pain (avoid NSAIDs) -urology consult appreciated for lithotripsy and JJ stent tomorrow. DVT prophylaxis: SCD
[2020-07-03 07:54] LABS: HEMOGLOBIN 13.9 GM/dL (11.7-16.9); MCH 30.7 pg (25.7-33.7); MCHC 33.9 g/dl (32.0-35.9); MEAN CELL VOLUME 90.7 fl (80-96); MEAN PLT VOLUME 9.5 fl (7.5-11.1); PLATELET COUNT 202 K/MM3 (134-434); RBC 4.52 M/mm3 (4.00-5.60); WHITE BLOOD COUNT 4.9 K/mm3 (4.0-10.0)
[2020-07-03 08:15] LABS: BLOOD UREA NITROGEN 10.6 mg/dL (7-18); CREATININE 0.9 mg/dL (0.55-1.3); PHOSPHOROUS 3.2 mg/dL (2.5-4.9); POTASSIUM 4.2 mmol/L (3.5-5.1)
[2020-07-03] MEDS: TAMSULOSIN HCL 0.4 MG CAP PO SCH (08:23)
[2020-07-03] MEDS: POLYETHYLENE GLYCOL 3350 119 GM BTL PO SCH (09:14)
[2020-07-03] MEDS: DOCUSATE SODIUM 100 MG CAPSULE (FP) PO SCH (09:14)
[2020-07-03] MEDS: SODIUM CHLORIDE 1,000 ML IV SCH (09:14)
[2020-07-03] MEDS: PANTOPRAZOLE 20 MG TABLET PO SCH (09:15)
--- NOTE | 2020-07-03 10:51 | OP ---
Operative Note - Note: Operative Date: 07/03/20 Pre-Operative Diagnosis: R ureteral calculus, R hydronephrosis Operation: R ureteroscopic laser lithotripsy and JJ stent insertion Findings: R distal ureteral calculus Post-Operative Diagnosis: Same as Pre-op Surgeon: Everett Woody Anesthesiologist/CARPET CLEANER: Jorge Shaikh Anesthesia: General Specimens Removed: R ureteral calculi Estimated Blood Loss (mls): 0 Drains & Tubes with Location: 6 fr 24 cm R JJ stent Operative Report Dictated: Yes
[2020-07-03] MEDS ORDERED: PROPOFOL 20 ML ONE (10:54)
[2020-07-03] MEDS ORDERED: MIDAZOLAM HCL 2 MG/2 ML SINGLE DOSE VIAL ONE ×2 (10:55)
[2020-07-03] MEDS ORDERED: ceFAZolin SODIUM 1 GM VIAL IVPB ONE (11:10)
[2020-07-03] MEDS ORDERED: ceFAZolin SODIUM 1 GM VIAL ONE (11:14)
[2020-07-03] MEDS ORDERED: LIDOCAINE HCL/PF 2% SDV 5ML VIAL ONE (11:14)
[2020-07-03] MEDS ORDERED: DEXAMETHASONE SOD PHOSPHATE 4 MG/1 ML VIAL ONE (11:18)
[2020-07-03] MEDS ORDERED: ONDANSETRON 4 MG/2 ML VIAL IVPUSH PRN (12:10)
[2020-07-03] MEDS ORDERED: LACTATED RINGERS SOLUTION 1,000 ML IV SCH (12:15)
--- NOTE | 2020-07-03 14:09 | DS ---
Physical Exam: SUBJECTIVE: Patient seen and examined at bedside without any acute overnight events. Patient denies abdominal pain, dysuria, or hematuria. OBJECTIVE: Vital Signs Period Temp Pulse Resp BP Sys/Martínez Pulse Ox Last 24 Hr 97.6 F-98.5 F 76-118 16-20 102-161/64-85 95-99 PHYSICAL EXAM GENERAL: The patient is awake, alert, and fully oriented, in no acute distress. LUNGS: Breath sounds equal, clear to auscultation bilaterally, no wheezes, no crackles, no accessory muscle use. HEART: Regular rate and rhythm, S1, S2 without murmur, rub or gallop. ABDOMEN: Soft, nontender, nondistended, normoactive bowel sounds, no guarding, no rebound, no hepatosplenomegaly, no masses. EXTREMITIES: 2+ pulses, warm, well-perfused, no edema. NEUROLOGICAL: Cranial nerves II through XII grossly intact. Normal speech, gait not observed. LABS Laboratory Results - last 24 hr 07/03/20 07/03/20 06:38 06:38 WBC 4.9 RBC 4.52 Hgb 13.9 Hct 41.0 MCV 90.7 MCH 30.7 MCHC 33.9 RDW 13.0 Plt Count 202 MPV 9.5 Sodium 141 Potassium 4.2 Chloride 106 Carbon Dioxide 30 Anion Gap 4 L BUN 10.6 Creatinine 0.9 Est GFR (CKD-EPI)AfAm 126.90 Est GFR (CKD-EPI)NonAf 109.49 Random Glucose 95 Calcium 9.0 Phosphorus 3.2 Magnesium 2.0 HOSPITAL COURSE: Date of Admission:06/30/20 Brennen is a 34M with a h/o gastritis presenting to the hospital for right flank pain. Patient was found to have a 0.7cm x 0.2cm right uretovesicular junction calculus seen with resultant mild to moderate hydronephrosis. The patient was managed by urologist Dr. Everett Hinds and was observed overnight for signs of stone passage with urine strainer. Patient was unsuccessful with passage of stone and taken to the OR for JJ stent insertion and right ureteroscopic laser lithotripsy on 07/03. Patient discharged on 1 week of bactrim and tramadol for pain. Patient was also found to have severe phimosis during surgery and will follow up with Dr. hinds outpatient tomorrow 07/04/2020 Date of Discharge: 07/03/20 Minutes to complete discharge: 40 Discharge Summary Problems reviewed: Yes Reason For Visit: HYDRONEPHROSIS OF RIGHT KIDNEY,CALCULUS OF RIGHT Condition: Stable - Instructions Diet, Activity, Other Instructions: YOUR VISIT You were admitted to the hospital for abdominal pain and vomiting. While you were in the hospital we evaluated you with lab work, blood work, and CT scan of your abdomen and pelvis. CT scan of your abdomen showed a enlargement of your kidneys and a kidney stone in your right kidney. You were evaluated by Dr. Hinds the Urologist during your hospital course. You were treated with anti-nausea med ications, antibiotics and fluids. During your stay you underwent surgery with lithotripsy and a placement of a stent for your enlarged kidneys. You will need to follow up with your Urologist for further work up of your surgery. During your hospital course, the urologist noted that your foreskin was constricting your penis head. You will need to discuss further management with your Urologist tomorrow during your appointment. (07/03/2020) MEDICATIONS: Please START taking BACTRIM 160mg one tablet twice a day for 1 week Please START taking TORADOL 10mg every six hours as needed for pain Please continue taking all other medications as prescribed. ADDITIONAL INSTRUCTIONS: Your urologist has instructed you to keep the suture taped to your penis,ok to shower It is important that you refrain from bathing, swimming, or sex until the stent is removed.. Careful showering is permitted. REFERRAL: Please follow up with Dr. Hinds (Urology) tomorrow to discuss further management of your surgical procedure. (07/03/2020) Please follow up with your primary care physician within 1 week of discharge to review your hospital course. If you do not have a primary care doctor you can follow up with Dr. Bertin Dawson at the [facility] at [address] [place] [address]. ADDITIONAL INFORMATION: You are being discharged home Please seek the nearest emergency department if you start experiencing further episodes of abdominal pain, blood in your urine, pain with urination, nausea, vomiting or any concerning symptoms. Referrals: Everett Hinds MD [Staff Physician] - 07/04/20 (JJ stent follow up) Bertin Dawson RES [Resident] - Disposition: HOME - Home Medications Comprehensive Discharge Medication List: Ambulatory Orders Lactobacillus Acidophilus [Probiotic] 1 each PO DAILY 06/30/20 Omeprazole Magnesium [Prilosec Otc] 20 mg PO DAILY 06/30/20 Ketorolac Tromethamine [Toradol] 10 mg PO Q6H #28 tablet 07/03/20 Sulfamethoxazole/Trimethoprim [Bactrim Ds -] 1 tab PO BID #14 tablet 07/03/20 This patient is new to me today: No Emergency Visit: Yes ED Registration Date: 06/30/20 Care time: The patient presented to the Emergency Department on the above date and was hospitalized for further evaluation of their emergent condition. Critical Care patient: No - Discharge Referral Referred to [facility] Med P.C.: No ATTENDING PHYSICIAN STATEMENT I saw and evaluated the patient. I reviewed the resident's note and discussed the case with the resident. I agree with the resident's findings and plan as documented. SUBJECTIVE: OBJECTIVE: ASSESSMENT AND PLAN:
[2020-07-03 14:43] VITALS: BP 136/88; PULSE 99
[2020-07-03 15:09] VITALS: TEMP 97.9
--- NOTE | 2020-07-03 17:51 | PN ---
Teaching Attending Note Name of Resident: Bertin Dawson ATTENDING PHYSICIAN STATEMENT I saw and evaluated the patient. I reviewed the resident's note and discussed the case with the resident. I agree with the resident's findings and plan as documented. SUBJECTIVE: Feels well, abdo/flank pain resolved. No fever/chills. N hematuria. OBJECTIVE: Afebrile, hemodynamically Stable Last Vital Signs Temp Pulse Resp BP Pulse Ox 97.9 F 99 H 18 136/88 99 07/03/20 15:07 07/03/20 15:07 07/03/20 15:07 07/03/20 15:07 07/03/20 15:07 HEENT - Atraumatic, Normocephalic. Heart - S1, S2, RRR Lungs - clear to auscultation Abdomen - soft, non-tender. Bowel Sounds normal. Extremities - no edema, no calf tenderness. Neuro - AAO x 3. Tone/Power normal. Laboratory Results - last 24 hr 07/03/20 07/03/20 06:38 06:38 WBC 4.9 RBC 4.52 Hgb 13.9 Hct 41.0 MCV 90.7 MCH 30.7 MCHC 33.9 RDW 13.0 Plt Count 202 MPV 9.5 Sodium 141 Potassium 4.2 Chloride 106 Carbon Dioxide 30 Anion Gap 4 L BUN 10.6 Creatinine 0.9 Est GFR (CKD-EPI)AfAm 126.90 Est GFR (CKD-EPI)NonAf 109.49 Random Glucose 95 Calcium 9.0 Phosphorus 3.2 Magnesium 2.0 Discharge Medications Medication Instructions Recorded Lactobacillus Acidophilus 1 each PO DAILY 06/30/20 [Probiotic] Omeprazole Magnesium [Prilosec Otc] 20 mg PO DAILY 06/30/20 Ketorolac Tromethamine [Toradol] 10 mg PO Q6H #28 tablet 07/03/20 Sulfamethoxazole/Trimethoprim 1 tab PO BID #14 tablet 07/03/20 [Bactrim Ds -] ASSESSMENT AND PLAN: 34 year old male with history of gastritis, presented with abdo/flank pain, founs to have Nephrolithiasis with obstruction. 1. Nephrolithiasis with Hydronephrosis CT Abdomen - 7x2 mm stone noted with mild/moderate hydronephrosis Scheduled for Cystoscopy and JJ stent by Urology today Failed conservative management with IV fluids and Tamsulosin - Further management including analgesia and Abx as per Urology, who cleared for discharge. Afebrile, Hemodynamically stable. Urine Cx - no growth. No acute medical issues at this time. Urology out-patient follow up.
--- NOTE | 2020-07-03 23:22 | OP ---
DATE OF OPERATION: 07/03/2020 PREOPERATIVE DIAGNOSIS: Right ureteral calculus, right hydronephrosis. POSTOPERATIVE DIAGNOSIS: Right ureteral calculus, right hydronephrosis. PROCEDURE: Right ureteroscopic laser lithotripsy, right Double J stent insertion. SURGEON: Everett Woody MD. ASSISTANT STORE MANAGER TRAINEE: None. ANESTHESIA: General via laryngeal mask. ANESTHESIOLOGIST: Jorge Shaikh MD. SPECIMENS: Right ureteral calculi. CULTURES: None. DRAINS: 6 Cypriot 24-cm Double J stent. ESTIMATED BLOOD LOSS: None. COMPLICATIONS: None. DESCRIPTION OF PROCEDURE: Patient was brought in the operating room, placed on the operating room table in the supine position. After the administration of general anesthesia via laryngeal mask, intravenous antibiotics were administered. Sequential compression devices were placed. Patient placed in dorsal lithotomy position. Genitals were prepped and draped in the usual sterile manner. Of note, patient had a severe phimosis. The 22 Cypriot cystoscope was inserted into the bladder under direct vision. Anterior and posterior urethras were normal. The bladder was entered and thoroughly inspected. There were no foreign bodies, tumors, stones, inflammation. Both ureteral orifices were in the usual location with diminished efflux in the right ureteral orifice. The right ureteral orifice was cannulated with a 0.038 guidewire, advanced to the level of the right renal pelvis under fluoroscopic direct visual guidance. Now the bladder was emptied, the scope removed, and the semirigid ureteroscope was inserted alongside the guidewire into the ureterovesical junction where a stone was visualized immediately. A 365-micron laser fiber was used, and a laser lithotripsy was done. The stone was fragmented into small pieces, and they were basketed and removed and sent to pathology as specimen. Retrograde pyelogram was done, demonstrated mild right hydronephrosis, no extravasation of contrast, no filling defects, no additional stones. Now the cystoscope was back loaded, and a 6 Cypriot, 24-cm right Double J stent was inserted over the guidewire under direct visual and fluoroscopic guidance leaving 1 coil in the renal pelvis and 1 coil in the bladder. The bladder was emptied, instruments removed. The stent was secured to . Licha [id number]
--- NOTE | 2020-07-04 18:00 | PATH ---
Surgical Pathology Report Patient Name: LISA DODSON Med. Rec. #: [id number] /Age/Gender: 1985 (Age: 34) / M Account: [id number] Location: [facility] MED/SURG Taken: 07/03/2020 Received: 07/03/2020 Reported: 07/04/2020 Physicians: Everett Woody M.D. Specimen(s) Received RIGHT URETERAL STONE Clinical History Right hydronephrosis Final Diagnosis URETERAL STONE, RIGHT, STONE BASKETING: URETEROLITHIASIS. MACROSCOPIC DIAGNOSIS. Electronically Signed Meghan Dickson M.D. Gross Description Received fresh labeled "right ureteral stone," is a 0.2 cm in greatest dimension carr-smith, irregular calculus which is sent for chemical analysis. /07/03/2020 [facility]/07/03/2020
[2020-07-18 09:16] LABS: CA OXALATE MONOHYDR. 10%; SIZE 1 x 2; WEIGHT 2
== END 2020-07-03 17:46 | disposition home or self-care (01) | DRG 446 ==
LOC: JER 22:21 → JERBED 06-30 04:13 → J8W 06-30 07:48
PROVIDERS: ADMIT Internal Medicine
PROC: BT1DZZZ Fluoroscopy of Right Kidney, Ureter and Bladder (ICD-10-PCS; 2020-07-03)
PROC: 0TC68ZZ Extirpation of Matter from Right Ureter, Via Natural or Artificial Opening Endoscopic (ICD-10-PCS; principal; 2020-07-03 13:00)
PROC: 0T768DZ Dilation of Right Ureter with Intraluminal Device, Via Natural or Artificial Opening Endoscopic (ICD-10-PCS; 2020-07-03 13:00)
DX: N13.2 Hydronephrosis with renal and ureteral calculous obstruction (principal); N17.9 Acute kidney failure, unspecified; K44.9 Diaphragmatic hernia without obstruction or gangrene; K57.90 Diverticulosis of intestine, part unspecified, without perforation or abscess without bleeding; K29.70 Gastritis, unspecified, without bleeding; N30.90 Cystitis, unspecified without hematuria; K76.89 Other specified diseases of liver
CPT/HCPCS: 36415; 74176-TC; 76000-TC-FY; 80048; 80053; 81003; 82360; 83690; 83735; 84100; 85027; 87086; 88300-TC; 93005; 93010; 94760; 99285-25; U0003

== ENCOUNTER 2020-08-15 04:48 | Day surgery (SDC) | payer OTHER ==
[2020-08-14 09:23] VITALS: BMI 25.0
--- OUTSIDE RECORDS SUMMARY | 2020-08-15 04:51 | XMS ---
:1985 Author Organization [facility] Support Name Relationship Address Phone IGOR Unavailable [address] [address] [address] [place] [phone] ROSALIE Spouse [address] [place] [address] Re-disclosure Warning The records that you are about to access may contain information from federally- assisted alcohol or drug abuse programs. If such information is present, then the following federally mandated warning applies: This information has been disclosed to you from records protected by federal confidentiality rules (42 CFR part 2). The federal rules prohibit you from making any further disclosure of this information unless further disclosure is expressly permitted by the written consent of the person to whom it pertains or as otherwise permitted by 42 CFR part 2. A general authorization for the release of medical or other information is NOT sufficient for this purpose. The Federal rules restrict any use of the information to criminally investigate or prosecute any alcohol or drug abuse patient.The records that you are about to access may contain highly sensitive health information, the redisclosure of which is protected by Article 27-F of the [facility] Public Health law. If you continue you may haveaccess to information: Regarding HIV / AIDS; Provided by facilities licensed or operated by the [facility] Office of Mental Health; or Provided by the [facility] Office for People With Developmental Disabilities. If such information is present, then the following [facility] mandated warning applies: This information has been disclosed to you from confidential records which are protected by state law. State law prohibits you from making any further disclosure of this information without the specific written consent of the person to whom it pertains, or as otherwise permitted by law. Any unauthorized further disclosure in violation of state law may result in a fine or shelter sentence or both. A general authorization for the release of medical or other information is NOT sufficient authorization for further disclosure. Insurance Providers Payer name Policy type Policy ID Covered Covered libertarian's Policy P paloma / Coverage libertarian ID relationship to García Inf ormation type garcía ALYSSIA [id number] 100 ESSENTIAL PLAN 1 2 ALYSSIA [id number] 100 ESSENTIAL PLAN 1 2 Results ID Date Data Source [id number] 08/10/2020 12:50:00 PM EDT [facility] Name Value Range Interpretation Description Data Sup porting Code Source(s) Document(s ) SARS [facility] coronavirus 2 RNA This lab was ordered by [facility] and reported by [facility]. ID Date Data Source [id number] 07/05/2020 09:34:00 AM EDT [facility] Name Value Range Interpretation Description Data Sup porting Code Source(s) Document(s ) SARS [facility] coronavirus 2 RNA This lab was ordered by [facility] and reported by [facility]. ID Date Data Source [id number] 06/30/2020 11:50:00 AM EDT [facility] Name Value Range Interpretation Description Data Sup porting Code Source(s) Document(s ) SARS [facility] coronavirus 2 RNA This lab was ordered by [facility] and reported by [facility]. ID Date Data Source [id number] 04/09/2020 06:20:00 PM EDT [facility] Name Value Range Interpretation Description Data Sup porting Code Source(s) Document(s ) SARS [facility] CORONAVIRUS 2 RNA This lab was ordered by [facility] and reported by [facility]. Procedure
--- NOTE | 2020-08-15 10:38 | HP ---
History & Physical Update - History History: No Change - Physical Physical: No Change - Assessment Assessment: No Change - Plan Plan: No Change
--- NOTE | 2020-08-15 10:39 | OP ---
Operative Note - Note: Operative Date: 08/15/20 Pre-Operative Diagnosis: phimosis Operation: circumcision Findings: phimosis Post-Operative Diagnosis: Same as Pre-op Surgeon: Everett Woody Anesthesiologist/RN TRANSPORT: Kieran Lujan Anesthesia: General, Local Specimens Removed: foreskin Estimated Blood Loss (mls): 5 Operative Report Dictated: Yes
[2020-08-15] MEDS ORDERED: BACITRACIN 15 GM TUBE TOPICAL OINTMENT ONE (13:37)
[2020-08-15] MEDS ORDERED: BUPIVACAINE HCL 100 ML ONE (13:37)
[2020-08-15] MEDS ORDERED: PROPOFOL 20 ML ONE (14:23)
[2020-08-15] MEDS ORDERED: MIDAZOLAM HCL 2 MG/2 ML SINGLE DOSE VIAL ONE (14:23)
[2020-08-15] MEDS ORDERED: LIDOCAINE HCL 1%, 10 MG/ML (20ML VIAL) ONE (14:27)
[2020-08-15] MEDS ORDERED: DEXAMETHASONE SOD PHOSPHATE 4 MG/1 ML VIAL ONE (14:32)
[2020-08-15] MEDS ORDERED: ceFAZolin SODIUM 1 GM VIAL ONE (14:33)
[2020-08-15] MEDS ORDERED: ceFAZolin SODIUM 1 GM VIAL IVPB ONE (14:37)
[2020-08-15] MEDS ORDERED: LIDOCAINE HCL 1%, 10 MG/ML (20ML VIAL) NR ONE (14:40)
[2020-08-15] MEDS ORDERED: BUPIVACAINE HCL/PF 0.5% (5 MG/ML) 30 ML VIAL IJ ONE (14:40)
[2020-08-15] MEDS ORDERED: BACITRACIN 15 GM TUBE TOPICAL OINTMENT TP ONE (15:13)
[2020-08-15 18:12] VITALS: BP 110/63; PULSE 60; TEMP 97.4
--- NOTE | 2020-08-17 20:07 | OP ---
DATE OF OPERATION: 08/15/2020 PREOPERATIVE DIAGNOSIS: Phimosis. POSTOPERATIVE DIAGNOSIS: Phimosis. PROCEDURE: Circumcision. SURGEON: Everett Toscano MD RN INTERNAL MEDICINE: None. ANESTHESIA: General via laryngeal mask. ANESTHESIOLOGIST: Kieran Lujan MD SPECIMENS: Foreskin. CULTURES: None. DRAINS: None. ESTIMATED BLOOD LOSS: 5 mL. COMPLICATIONS: None. DESCRIPTION OF PROCEDURE: Patient brought in the operating room, placed on the operating table in supine position. After the administration of general anesthesia via laryngeal mask, intravenous antibiotics were administered. Sequential compression devices were placed. Patient was placed in supine position, and the genitals were prepped and draped in usual sterile manner. Then, 10 mL of a 1:1 mixture of 1% lidocaine with 0.25% Marcaine was injected circumferentially at the base of the penis for penile block. The circumcoronal incision was outlined with a marking pen at the level of the wolfe with the prep using the anatomic position. Circumcoronal incision was made with a scalpel, carried down to the underlying layer. Dorsal slit was made at the 12 o'clock position. The foreskin was then able to be retracted. The head of the penis and foreskin were then prepped with Betadine. Subcoronal preputial mucosal tissue was incised circumferentially, leaving 0.5 cm cuff circumferentially. Hemostasis was assured. The redundant foreskin was excised, sent to Pathology. The penile skin and the subcoronal preputial mucosal tissue were now approximated using interrupted 4-0 chromic suture circumferentially. Hemostasis was assured. The wound was sterilely dressing with bacitracin, Xeroform gauze, 4 x 4, and Coban. He tolerated the procedure well, transferred to Recovery in stable condition. EVERETT TOSCANO M.D. [id number]
--- NOTE | 2020-08-20 16:55 | PATH ---
Surgical Pathology Report Patient Name: LISA DODSON [facility]. Rec. #: [id number] /Age/Gender: 1985 (Age: 35) / M Account: [id number] Location: [facility] SURGICAL Taken: 08/15/2020 Received: 08/16/2020 Reported: 08/20/2020 Physicians: Everett Woody M.D. Specimen(s) Received FORESKIN Clinical History Phimosis Final Diagnosis FORESKIN, EXCISION: PORTION OF FORESKIN WITH FOCAL LICHEN SCLEROSUS AND CHRONIC INFLAMMATION. NEGATIVE FOR MALIGNANCY. Electronically Signed Neil Trinh M.D. Gross Description Received in formalin labeled "foreskin," is a 5.8 x 1.8 x 0.6 centimeter brown, irregular, wrinkled portion of skin, consistent with foreskin. No discrete epidermal lesions are identified. A insurance representative section is submitted in one cassette. /08/19/2020 [facility]08/19/2020
== END 2020-08-15 16:10 | disposition home or self-care (01) ==
LOC: JASU-SURG 04:48
PROVIDERS: ATTEND Urology
PROC: 0VTTXZZ Resection of Prepuce, External Approach (ICD-10-PCS; principal; 2020-08-15 14:30)
DX: N47.1 Phimosis (principal)
CPT/HCPCS: 88304-TC; 94760

== ENCOUNTER 2023-02-16 12:30 | Day surgery (SDC) | payer OTHER ==
[2023-02-11 12:03] VITALS: BMI 25.0
[2023-02-16 13:54] VITALS: TEMP 98
[2023-02-16 14:11] VITALS: RESP 18
[2023-02-16 14:12] VITALS: BP 115/64; PULSE 77
== END 2023-02-16 14:41 | disposition home or self-care (01) ==
LOC: FASU-ENDO 12:30
PROVIDERS: ATTEND Internal Medicine Gastroenterology
PROC: 0DB68ZX Excision of Stomach, Via Natural or Artificial Opening Endoscopic, Diagnostic (ICD-10-PCS; 2023-02-16)
PROC: 0DB48ZX Excision of Esophagogastric Junction, Via Natural or Artificial Opening Endoscopic, Diagnostic (ICD-10-PCS; 2023-02-16)
PROC: 0DB98ZX Excision of Duodenum, Via Natural or Artificial Opening Endoscopic, Diagnostic (ICD-10-PCS; principal; 2023-02-16 13:40)
DX: R10.13 Epigastric pain (principal); K31.7 Polyp of stomach and duodenum; K44.9 Diaphragmatic hernia without obstruction or gangrene; K20.90 Esophagitis, unspecified without bleeding; K29.70 Gastritis, unspecified, without bleeding
CPT/HCPCS: 88305-TC; 88342-TC

== ENCOUNTER 2024-08-03 10:18 | Emergency (ER) | payer SELFPAY ==
[2024-08-03 10:38] VITALS: BP 119/82; PULSE 94; RESP 16; TEMP 98.5; BMI 25.0
== END 2024-08-03 11:12 | disposition home or self-care (01) ==
LOC: JERFT 10:18
DX: S81.852A Open bite, left lower leg, initial encounter (principal); W54.0XXA Bitten by dog, initial encounter
CPT/HCPCS: 99283-25